=== PATIENT | male | born 1935 | race Caucasian/White ===

== ENCOUNTER → 2016-10-25 | Outpatient (CLI) | payer OTHER ==
[2016-10-25 12:07] LABS: SGOT 38 U/L (15-37); SGPT 52 U/L (30-65)
== END ==
LOC: RAD 11:07
DX: Z85.820 Personal history of malignant melanoma of skin (principal)

== ENCOUNTER → 2017-09-18 | Outpatient (CLI) | payer OTHER ==
[2017-09-18 11:51] LABS: SGOT 25 U/L (15-37); SGPT 30 U/L (30-65)
== END ==
LOC: LABMALL 10:45
PROVIDERS: Dermatology
DX: C43.59 Malignant melanoma of other part of trunk (principal); Z85.820 Personal history of malignant melanoma of skin

== ENCOUNTER → 2018-09-23 | Outpatient (CLI) | payer OTHER | LOC: RAD 11:17 | DX: J98.4 Other disorders of lung (principal); Z85.820 Personal history of malignant melanoma of skin ==

== ENCOUNTER → 2020-08-25 | Outpatient (CLI) | payer OTHER | LOC: RAD 14:32 | DX: Z08 Encounter for follow-up examination after completed treatment for malignant neoplasm (principal); D22.5 Melanocytic nevi of trunk; D22.39 Melanocytic nevi of other parts of face; D22.4 Melanocytic nevi of scalp and neck; D22.61 Melanocytic nevi of right upper limb, including shoulder; D22.71 Melanocytic nevi of right lower limb, including hip; D22.72 Melanocytic nevi of left lower limb, including hip; L82.1 Other seborrheic keratosis; L81.4 Other melanin hyperpigmentation; Z87.2 Personal history of diseases of the skin and subcutaneous tissue; Z85.820 Personal history of malignant melanoma of skin ==